=== PATIENT | male | born 1960 | race Caucasian/White ===

== ENCOUNTER 2018-04-05 09:50 | Emergency (ER) | payer OTHER ==
[~2018-04-05] VITALS: Ht 180.3 cm; Wt 147.7 kg
[~2018-04-05 09:50] MED LIST: CABE0.5T PO
[2018-04-05 10:03] VITALS: BP 157/83; PULSE 90; RESP 20; Ht 180.3 cm; Wt 147.7 kg
[2018-04-05] MEDS ORDERED: CEPH500C PO (11:01)
[2018-04-05] MEDS ORDERED: MUPI22OI2 TOP (11:01)
--- NOTE | 2018-04-05 20:16 | ERD ---
ER Documentation Chief Complaint Chief Complaint Complains of infected index finger x 3 days HPI 58-year-old male presents for index finger infection times 3 days. Patient has a history of heart valve surgery. States that he nicked his finger about 3 days ago states that the finger appears to be infected currently. Patient took some amoxicillin at home. He states that the pain in his finger appears to be worsening. No other complaints per ROS All systems reviewed and are negative except as per history of present illness. Medications Home Meds Active Scripts Mupirocin* (Bactroban*) 2% -22 Gram Oint...g., 1 APPLIC TOP BID for finger in fection for 7 Days, #1 TUBE Prov:ALEKSEY QUINTANILLA DO 04/05/18 Cephalexin* (Cephalexin*) 500 Mg Capsule, 500 MG PO Q8 for finger infection for 5 Days, #15 CAP Prov:ALEKSEY QUINTANILLA DO 04/05/18 Reported Medications Cabergoline* (Cabergoline*) 0.5 Mg Tablet, 0.25 MG PO TWICE WEEKLY, TAB 02/14/15 Allergies Allergies: Coded Allergies: No Known Allergies (Verified Allergy, Unknown, 04/15/18) PMhx/Soc Anesthesia Reaction: No Hx Neurological Disorder: No Hx Respiratory Disorders: No Hx Cardiac Disorders: No Hx Psychiatric Problems: No Hx Miscellaneous Medical Probl: Yes (CARDIAC) Hx Alcohol Use: No Hx Substance Use: No Hx Tobacco Use: No Smoking Status: Never smoker Physical Exam Vitals Vital Signs Date Temp Pulse Resp B/P (MAP) Pulse Ox O2 O2 Flow FiO2 Time Delivery Rate 04/05/18 98.2 90 20 157/83 94 10:03 (107) Physical Exam Const: No acute distress Resp: Clear to auscultation bilaterally Cardio: Regular rate and rhythm, no murmurs Skin: No petechiae or rashes Ext: Right index finger superficial abscess noted over the nail fold, with erythema and increased warmth. Neur: Awake and alert, sensation intact in all fingers of the right hand Psych: Normal Mood and Affect Procedures/MDM Abscess Incision and Drainage with irrigation by me: Location: Right index finger Anesthesia: Local 1% Lidocaine Technique: Irrigated. Disrupted loculations w/ instrumentation Packing: None Complications: Neurovascularly intact post procedure 48 hour wound check. Scar minimization instructions given. Medical Decision Making: Patient appeared well on physical exam. Physical examination consistent with paronychia with superficial abscess. Incision and drainage was done, see procedure note above. Patient given prescription for antibiotics. Patient instructed regarding wound care and warm soaks. Patient advised to follow up with PCP in 1-2 days. Patient advised to return to ED for new or worsening symptoms. Patient stable on discharge from the ED. Disclaimer: Inadvertent spelling and grammatical errors are likely due to EHR/dictation software use and do not reflect on the overall quality of patient care. Also, please note that the electronic time recorded on this note does not necessarily reflect the actual time of the patient encounter. Departure Diagnosis: Primary Impression: Paronychia Condition: Fair Patient Instructions: Paronychia Referrals: [facility] YOU HAVE RECEIVED A MEDICAL SCREENING EXAM AND THE RESULTS INDICATE THAT YOU DO NOT HAVE A CONDITION THAT REQUIRES URGENT TREATMENT IN THE EMERGENCY DEPARTMENT. FURTHER EVALUATION AND TREATMENT OF YOUR CONDITION CAN WAIT UNTIL YOU ARE SEEN IN YOUR DOCTORS OFFICE WITHIN THE NEXT 1-2 DAYS. IT IS YOUR RESPONSIBILITY TO MAKE AN APPOINTMENT FOR FOLOW-UP CARE. IF YOU HAVE A PRIMARY DOCTOR --you should call your primary doctor and schedule an appointment IF YOU DO NOT HAVE A PRIMARY DOCTOR YOU CAN CALL OUR PHYSICIAN REFERRAL HOTLINE AT IF YOU CAN NOT AFFORD TO SEE A PHYSICIAN YOU CAN CHOSE FROM THE FOLLOWING [facility] [address] [facility]. [facility] [address] [facility] [address] [facility]. [facility] [address] [facility]. [facility] [address] [facility]. [facility]. [address] Additional Instructions: Call your primary care doctor TOMORROW for an appointment during the next 1-2 days.See the doctor sooner or return here if your condition worsens before your appointment time. Frequent warm soaks 5-10mins each time to keep the finger/abscess draining. ALEKSEY QUINTANILLA DO Apr 05, 2018 20:16
== END 2018-04-05 11:25 | disposition home or self-care (01) ==
LOC: FTE 09:50
DX: L03.019 Cellulitis of unspecified finger (principal)
CPT/HCPCS: 99283

== ENCOUNTER 2018-10-10 12:17 | Emergency (ER) | payer OTHER ==
[~2018-10-10] VITALS: Ht 193 cm; Wt 127.3 kg
[~2018-10-10 12:17] MED LIST changes: +CEPH500C PO; +MUPI22OI2 TOP
[2018-10-10 12:29] VITALS: BP 145/74; PULSE 79; RESP 18; Ht 193 cm; Wt 127.3 kg
--- NOTE | 2018-10-10 13:30 | ERD ---
ER Documentation Chief Complaint Chief Complaint bee sting left forearm 1wk not healing HPI 49-year-old male presents with complaint of left forearm bee sting last week that is not healing. Is concerned that he had's heart surgery several years ago and is concerned that he has an infection I will spread to his heart. He has begun Keflex antibiotic on his own. He otherwise denies fevers, chills, and otherwise reports that swelling and redness to area has improved. He denies any respiratory symptoms such as shortness of breath dyspnea, tongue swelling, or any other concerning anaphylactic type symptoms. He otherwise is without complaint. ROS All systems reviewed and are negative except as per history of present illness. Medications Home Meds Active Scripts Mupirocin* (Bactroban*) 2% -22 Gram Oint...g., 1 APPLIC TOP BID for finger infection for 7 Days, #1 TUBE Prov:ALEKSEY QUINTANILLA 04/05/18 Cephalexin* (Cephalexin*) 500 Mg Capsule, 500 MG PO Q8 for finger infection for 5 Days, #15 CAP Prov:ALEKSEY QUINTANILLA 04/05/18 Reported Medications Cabergoline* (Cabergoline*) 0.5 Mg Tablet, 0.25 MG PO TWICE WEEKLY, TAB 02/14/15 Allergies Allergies: Coded Allergies: No Known Allergies (Verified Allergy, Unknown, 10/10/18) PMhx/Soc Anesthesia Reaction: No Hx Neurological Disorder: No Hx Respiratory Disorders: No Hx Cardiac Disorders: No Hx Psychiatric Problems: No Hx Miscellaneous Medical Probl: Yes (CARDIAC) Hx Alcohol Use: No Hx Substance Use: No Hx Tobacco Use: No Smoking Status: Never smoker FmHx Family History: No diabetes, No coronary disease, No other Physical Exam Vitals Vital Signs Date Temp Pulse Resp B/P (MAP) Pulse Ox O2 O2 Flow FiO2 Time Delivery Rate 10/10/18 98.6 79 18 145/74 98 12:29 (97) Physical Exam Const: No acute distress Head: Atraumatic Eyes: Normal Conjunctiva ENT: Normal External Ears, Nose and Mouth. Neck: Full range of motion. No meningismus. Resp: Clear to auscultation bilaterally Cardio: Regular rate and rhythm, no murmurs Abd: Soft, non tender, non distended. Normal bowel sounds Skin: Left forearm with small area of bee sting, no evidence of stinger remains, no surrounding erythema, swelling, nontender, patient moving affected extremity without issue, wiggles all fingers Back: No midline or flank tenderness Ext: No cyanosis, or edema Neur: Awake and alert Psych: Normal Mood and Affect Procedures/MDM 58-year-old male presents with complaint of left forearm bee sting. I have low suspicion for acute infectious process warranting any emergent care or work-up at this time. Patient reassured and advised to continue symptomatic care. DISPOSITION PLAN: We discussed follow up with the patient's primary care doctor within 24 to 48 hours. Patient counseled regarding my diagnostic impression and care plan. Prior to discharge all questions answered. Pt agrees with treatment plan and understands strict return precautions. Precautionary instructions provided including instructions to return to the ER if not improving or for any worsening or changing symptoms or concerns. Disclaimer: Inadvertent spelling and grammatical errors are likely due to EHR/dictation software use and do not reflect on the overall quality of patient care. Also, please note that the electronic time recorded on this note does not necessarily reflect the actual time of the patient encounter. Departure Diagnosis: Primary Impression: Bee sting Condition: Stable Patient Instructions: Insect Bites and Stings Referrals: [facility] YOU HAVE RECEIVED A MEDICAL SCREENING EXAM AND THE RESULTS INDICATE THAT YOU DO NOT HAVE A CONDITION THAT REQUIRES URGENT TREATMENT IN THE EMERGENCY DEPARTMENT. FURTHER EVALUATION AND TREATMENT OF YOUR CONDITION CAN WAIT UNTIL YOU ARE SEEN IN YOUR DOCTORS OFFICE WITHIN THE NEXT 1-2 DAYS. IT IS YOUR RESPONSIBILITY TO MAKE AN APPOINTMENT FOR FOLOW-UP CARE. IF YOU HAVE A PRIMARY DOCTOR --you should call your primary doctor and schedule an appointment IF YOU DO NOT HAVE A PRIMARY DOCTOR YOU CAN CALL OUR PHYSICIAN REFERRAL HOTLINE AT IF YOU CAN NOT AFFORD TO SEE A PHYSICIAN YOU CAN CHOSE FROM THE FOLLOWING [facility] [address] [facility] [address] [facility] [facility] [address] [facility] [address] [facility]. [facility] [address] [facility]. [facility]. [address] Additional Instructions: Call your primary care doctor TOMORROW for an appointment during the next 2-3 days.See the doctor sooner or return here if your condition worsens before your appointment time. LAMAR BENSON PA-C Oct 10, 2018 13:30
== END 2018-10-10 14:44 | disposition home or self-care (01) ==
LOC: FTE 12:17
DX: T63.444A Toxic effect of venom of bees, undetermined, initial encounter (principal)
CPT/HCPCS: 99282